=== PATIENT | female | born 1950 | race Caucasian/White ===

== ENCOUNTER 2022-11-28 06:31 | Day surgery (SDC) | payer MEDICARE ==
[2022-11-27 11:58] VITALS: BMI 18.6
[~2022-11-28 06:31] MED LIST: EPINEPHrine 0.3 MG in Ophthalmic Irrigation Solution 500 ML IRR SCH
[2022-11-28] MEDS ORDERED: PROPOFOL 20 ML ONE (06:41)
[2022-11-28] MEDS ORDERED: fentaNYL 50 mcg/mL 1 mL Vial ONE (06:41)
[2022-11-28] MEDS ORDERED: Midazolam HCl 2 mg/2 ml Vial ONE (06:41)
[2022-11-28] MEDS ORDERED: PHENYLephrine 2.5% Ophth Soln 15 ml Bottle ONE (07:11)
[2022-11-28] MEDS ORDERED: Cyclopentolate 1% Opth Drop 2 ML BOT ONE (07:11)
[2022-11-28] MEDS ORDERED: Indocyanine Green 25 MG/10 ML VIAL ONE (08:32)
[2022-11-28] MEDS ORDERED: CEFAZOLIN 1 GM VIAL ONE (08:32)
[2022-11-28] MEDS ORDERED: Triamcinolone 40 MG/ML VIAL ONE (08:32)
[2022-11-28] MEDS ORDERED: Lidocaine 1% PF 5 ML VIAL ONE (08:32)
[2022-11-28] MEDS ORDERED: Lidocaine 4% PF 5 ML AMP ONE (08:32)
[2022-11-28] MEDS ORDERED: Maxitrol 0.1% Opth Oint 3.5 GM TUBE ONE (08:32)
[2022-11-28] MEDS ORDERED: Bupivacaine 0.75% 10 ML VIAL ONE (08:32)
== END 2022-11-28 10:00 | disposition home or self-care (01) ==
LOC: SDC 06:31
PROVIDERS: ATTEND Ophthalmology Retina Specialist
PROC: 08B43ZZ Excision of Right Vitreous, Percutaneous Approach (ICD-10-PCS; principal; 2022-11-28)
PROC: 08NE3ZZ Release Right Retina, Percutaneous Approach (ICD-10-PCS; 2022-11-28)
DX: H35.341 Macular cyst, hole, or pseudohole, right eye (principal); Z88.2 Allergy status to sulfonamides; Z88.1 Allergy status to other antibiotic agents
CPT/HCPCS: 67042; J3010; J0171; J0690; J2250; J2704; J3301; J3490